=== PATIENT | female | born 1970 | race Caucasian/White ===

== ENCOUNTER 2020-09-28 08:17 | Emergency (ER) | payer SELFPAY ==
[~2020-09-28] VITALS: Ht 172 cm; Wt 127.0 kg
[2020-09-28] MEDS ORDERED: LACTATED RINGERS 1,000 ML IV ONE ×2 (08:30)
--- NOTE | 2020-09-28 08:34 | ED GI ---
General Chief Complaint: Abdominal/GI Problems Stated Complaint: DIARRHEA/DEHYDRATION Nursing Triage Note: ARRIVED VIA AMB TO ROOM 05 WITH COMPLAINTS OF DIARRHEA SINCE FRIDAY. Sepsis Screen: No Definite Risk Source of Information: Patient Exam Limitations: No Limitations History of Present Illness Date Seen by Provider: Sep 28, 2020 Time Seen by Provider: 08:21 Initial Comments Patient presents to the ER by private conveyance from home with chief complaint of 4 days of nausea vomiting and diarrhea. Her nausea went away after a tablet of ondansetron on day 2 or 3. Her diarrhea has persisted despite Pepto-Bismol about every 1-1/2 hours. She is having loose watery diarrhea that she describes as a consistency of urine. She has no history of abdominal surgeries or medical problems. She follows with Dr. Pizano. Her son who is 18 had the symptoms first last week and lasted about 2 to 3 days and he is already back to normal. She has stuck to a brat diet. She is concerned that it has lasted so long. No fevers chills. She did start her period recently and has having some cramping from that and use some Tylenol. She does not use NSAIDs. Allergies and Home Medications Allergies Coded Allergies: No Known Drug Allergies (Unverified , 09/28/20) Home Medications No Active Prescriptions or Reported Meds Patient Home Medication List Home Medication List Reviewed: Yes Review of Systems Review of Systems Constitutional: No chills, No fever EENTM: No Blurred Vision, No Double Vision Respiratory: Denies Cough, Denies Shortness of Air Cardiovascular: Denies Chest Pain, Denies Lightheadedness Gastrointestinal: See HPI; Denies Constipated; Diarrhea, Nausea (Not presently), Poor Fluid Intake; Denies Vomiting Genitourinary: Denies Burning, Denies Discharge Musculoskeletal: No back pain, No joint pain All Other Systems Reviewed Negative Unless Noted: Yes Past Mkihtbn-Eiwmha-Nwjjli Hx Patient Social History Alcohol Use: Denies Use Smoking Status: Never a Smoker Recent Infectious Disease Expo: No Physical Exam Vital Signs Vital Signs - First Documented 09/28/20 08:20 Temp 36.9 Pulse 111 Resp 16 B/P (MAP) 149/106 (120) Pulse Ox 99 O2 Delivery Room Air Capillary Refill : Less Than 3 Seconds Height/Weight/BMI Height: '" Weight: lbs. oz. kg; 42.00 BMI Method: General Appearance: WD/WN, moderate distress HEENT: PERRL/EOMI; No pharynx normal (Dry oral mucosa) Neck: full range of motion, normal inspection Respiratory: no respiratory distress, no accessory muscle use Cardiovascular: normal peripheral pulses, regular rate, rhythm Peripheral Pulses: 2+ Radial Pulses (R), 2+ Radial Pulses (L) Gastrointestinal: normal bowel sounds, non tender, soft, no organomegaly, other (Negative for Botello sign, McBurney's point tenderness or mesenteric signs) Extremities: no pedal edema, normal capillary refill Neurologic/Psychiatric: alert, oriented x 3 Skin: normal color, warm/dry Progress/Results/Core Measures Results/Orders Lab Results Laboratory Tests Test 09/28/20 08:42 09/28/20 08:48 Range/Units Urine Color ORANGE Urine Clarity TURBID Urine pH 6.0 5-9 Urine Specific Bigler 1.025 H 1.016-1.022 Urine Protein 2+ H NEGATIVE Urine Glucose (UA) NEGATIVE NEGATIVE Urine Ketones NEGATIVE NEGATIVE Urine Nitrite NEGATIVE NEGATIVE Urine Bilirubin 1+ H NEGATIVE Urine Urobilinogen 0.2 < = 1.0 MG/DL Urine Leukocyte Esterase 1+ H NEGATIVE Urine RBC (Auto) 3+ H NEGATIVE Urine RBC TNTC H /HPF Urine WBC 50-100 H /HPF Urine Squamous Epithelial Cells 25-50 H /HPF Urine Crystals NONE /LPF Urine Bacteria MODERATE H /HPF Urine Casts NONE /LPF Urine Mucus NEGATIVE /LPF Urine Culture Indicated YES White Blood Count 11.0 4.3-11.0 10^3/uL Red Blood Count 5.45 H 3.80-5.11 10^6/uL Hemoglobin 15.7 11.5-16.0 g/dL Hematocrit 48 35-52 % Mean Corpuscular Volume 88 80-99 fL Mean Corpuscular Hemoglobin 29 25-34 pg Mean Corpuscular Hemoglobin Concent 33 32-36 g/dL Red Cell Distribution Width 14.8 H 10.0-14.5 % Platelet Count 632 H 130-400 10^3/uL Mean Platelet Volume 10.1 9.0-12.2 fL Immature Granulocyte % (Auto) 0 % Neutrophils (%) (Auto) 74 42-75 % Lymphocytes (%) (Auto) 12 12-44 % Monocytes (%) (Auto) 10 0-12 % Eosinophils (%) (Auto) 3 0-10 % Basophils (%) (Auto) 1 0-10 % Neutrophils # (Auto) 8.1 H 1.8-7.8 10^3/uL Lymphocytes # (Auto) 1.4 1.0-4.0 10^3/uL Monocytes # (Auto) 1.1 H 0.0-1.0 10^3/uL Eosinophils # (Auto) 0.3 0.0-0.3 10^3/uL Basophils # (Auto) 0.1 0.0-0.1 10^3/uL Immature Granulocyte # (Auto) 0.0 0.0-0.1 10^3/uL Sodium Level 135 135-145 MMOL/L Potassium Level 4.0 3.6-5.0 MMOL/L Chloride Level 107 98-107 MMOL/L Carbon Dioxide Level 16 L 21-32 MMOL/L Anion Gap 12 5-14 MMOL/L Blood Urea Nitrogen 15 7-18 MG/DL Creatinine 0.98 0.60-1.30 MG/DL Estimat Glomerular Filtration Rate 60 BUN/Creatinine Ratio 15 Glucose Level 120 H 70-105 MG/DL Calcium Level 8.8 8.5-10.1 MG/DL Corrected Calcium 8.6 8.5-10.1 MG/DL Magnesium Level 2.2 1.6-2.4 MG/DL Total Bilirubin 0.7 0.1-1.0 MG/DL Aspartate Amino Transf (AST/SGOT) 37 H 5-34 U/L Alanine Aminotransferase (ALT/SGPT) 33 0-55 U/L Alkaline Phosphatase 63 40-136 U/L C-Reactive Protein High Sensitivity 2.11 H 0.00-0.50 MG/DL Total Protein 7.7 6.4-8.2 GM/DL Albumin 4.2 3.2-4.5 GM/DL Lipase 14 8-78 U/L My Orders Orders - PRUDENCE HUSSEIN Lactated Ringers (Lr 1000 Ml Iv Solution (09/28/20 08:30) Lactated Ringers (Lr 1000 Ml Iv Solution (09/28/20 08:30) Cbc With Automated Diff (09/28/20 08:29) Comprehensive Metabolic Panel (09/28/20 08:29) Hs C Reactive Protein (09/28/20 08:29) Lipase (09/28/20 08:29) Magnesium (09/28/20 08:29) Ed Iv/Invasive Line Start (09/28/20 08:29) Ua Culture If Indicated (09/28/20 08:59) Urine Culture (09/28/20 08:42) Medications Given in ED Current Medications Medications Dose Ordered Sig/Kathrin Route Start Time Stop Time Status Last Admin Dose Admin Lactated Ringer's 1,000 ml @ 0 mls/hr Q0M ONCE IV 09/28/20 08:30 09/28/20 08:31 DC 09/28/20 08:46 1,000 MLS/HR Lactated Ringer's 1,000 ml @ 0 mls/hr Q0M ONCE IV 09/28/20 08:30 09/28/20 08:31 DC 09/28/20 09:39 1,000 MLS/HR Vital Signs/I&O 09/28/20 08:20 Temp 36.9 Pulse 111 Resp 16 B/P (MAP) 149/106 (120) Pulse Ox 99 O2 Delivery Room Air Blood Pressure Mean: 120 Progress Progress Note #1: Time: 08:31 Progress Note Counseled her on conservative management, Tylenol, loperamide, avoiding NSAIDs to help heal her gut. We are going to give her a couple liters since she is tachycardic and has dry mucosa. We will check some labs. She has a nonsurgical abdominal exam and no fever and has not been going on long enough to consider stool cultures at this time. We did give return precautions. Progress Note #2: Time: 10:03 Progress Note The patient is feeling significantly better. We are going to allow her to finish her fluids. The urine appears to be contaminated so we will follow the culture as adding antibiotics at this time may be less beneficial. Departure Impression Primary Impression: Gastroenteritis and colitis, viral Additional Impression: Dehydration Disposition: 01 HOME, SELF-CARE Condition: Improved Departure-Patient Inst. Decision time for Depature: 10:04 Referrals: LIZET PIZANO MD (PCP/Family) Primary Care Physician Patient Instructions: Dehydration, Adult (DC), Viral Gastroenteritis, Adult (DC) Add. Discharge Instructions: Drink plenty of fluids. Sports drinks are encouraged. Stick to a gentle diet like you have been doing with bananas, rice, applesauce toast and other similar, bland foods. In addition to your Pepto-Bismol you can start Imodium. Imodium 2 tablets followed by 1 tablet every 4 hours afterwards that you are still having watery, loose stools. Ondansetron 1 tablet under the tongue every 6 hours as necessary for nausea and/or vomiting. Return to the ER nearest you promptly if you experience severe, intractable pain, fever above 102.5 or other worrisome symptoms. Your primary care team can help you manage your symptoms and if your diarrhea persists for more than 10 days it would be reasonable to follow-up with them for further management. All discharge instructions reviewed with patient and/or family. Voiced understanding. Scripts Ondansetron (Ondansetron Odt) 4 Mg Tab.rapdis 4 MG PO Q6H PRN for NAUSEA/VOMITING, #8 TAB 0 Refills Prov: PRUDENCE HUSSEIN 09/28/20 Work/School Note: Work Release Form Date Seen in the Emergency Department: Sep 28, 2020 Return to Work: Oct 02, 2020 Restrictions: No Restrictions Other Restrictions Listed Below: May return when symptom-free for 24 hours without medicine to mask symptoms PRUDENCE HUSSEIN Sep 28, 2020 08:34
[2020-09-28 08:53] LABS: BASOPHILS # (AUTO) 0.1 10^3/uL (0.0-0.1); BASOPHILS % (AUTO) 1 % (0-10); EOSINOPHILS # (AUTO) 0.3 10^3/uL (0.0-0.3); EOSINOPHILS % (AUTO) 3 % (0-10); HEMATOCRIT 48 % (35-52); HEMOGLOBIN 15.7 g/dL (11.5-16.0); LYMPHOCYTES # (AUTO) 1.4 10^3/uL (1.0-4.0); LYMPHOCYTES % (AUTO) 12 % (12-44); MEAN CORPUSCULAR HEMOGLOBIN 29 pg (25-34); MEAN CORPUSCULAR HGB CONC 33 g/dL (32-36); MEAN CORPUSCULAR VOLUME 88 fL (80-99); MEAN PLATELET VOLUME 10.1 fL (9.0-12.2); MONOCYTES # (AUTO) 1.1 10^3/uL (0.0-1.0); MONOCYTES % (AUTO) 10 % (0-12); NEUTROPHILS # (AUTO) 8.1 10^3/uL (1.8-7.8); NEUTROPHILS % (AUTO) 74 % (42-75); PLATELET COUNT 632 10^3/uL (130-400)
[2020-09-28 09:02] LABS: ALBUMIN 4.2 GM/DL (3.2-4.5)
[2020-09-28 09:03] LABS: CALCIUM 8.8 MG/DL (8.5-10.1)
[2020-09-28 09:05] LABS: TOTAL PROTEIN 7.7 GM/DL (6.4-8.2)
[2020-09-28 09:06] LABS: BILIRUBIN,TOTAL 0.7 MG/DL (0.1-1.0)
[2020-09-28 09:08] LABS: CREATININE SERUM 0.98 MG/DL (0.60-1.30)
[2020-09-28 09:11] LABS: MAGNESIUM 2.2 MG/DL (1.6-2.4)
[2020-09-28 09:29] LABS: CLARITY,URINE TURBID; COLOR,URINE ORANGE; GLUCOSE, URINE (UA) NEGATIVE (NEGATIVE); KETONES,URINE NEGATIVE (NEGATIVE); LEUKOCYTE ESTERASE ,URINE 1+ (NEGATIVE); NITRITE,URINE NEGATIVE (NEGATIVE); PROTEIN,URINE 2+ (NEGATIVE)
[2020-09-28 09:39] LABS: BACTERIA,URINE MODERATE /HPF; BILIRUBIN,URINE 1+ (NEGATIVE); RBC,URINE TNTC /HPF; SQUAMOUS EPITHELIAL CELL,UR 25-50 /HPF; WBC,URINE 50-100 /HPF
[2020-09-28] MEDS ORDERED: ONDA4TAB11 PO (10:04)
[2020-09-28 10:49] VITALS: BP 127/75
== END 2020-09-28 10:49 | disposition home or self-care (01) ==
LOC: EDUNIT# 08:17 → ER 08:19
DX: A08.4 Viral intestinal infection, unspecified (principal)
CPT/HCPCS: 36415; 80053; 81000; 83690; 83735; 85025; 86141; 87088